=== PATIENT | female | born 1970 | race Caucasian/White ===

== ENCOUNTER 2019-03-08 18:30 | Emergency (ER) | payer BC, OTHER ==
[2019-03-08 18:45] VITALS: BP 165/97
--- NOTE | 2019-03-08 18:55 | UC ---
Throat Pain/Nasal Tam HPI - HPI Summary HPI Summary: This patient is a 48-year-old female who presents to the urgent care with chief complaint of sore throat, right ear pain for the last 2 days. She reports that her grandchildren positive for strep. Patient denies any fever or chills. Patient denies any difficulty swallowing or tongue swelling or lip swelling. The patient denies any trismus. - History of Current Complaint Chief Complaint: UCEar Stated Complaint: sore throat Time Seen by Provider: 03/08/19 18:40 Hx Obtained From: Patient Hx Last Menstrual Period: MENAPAUSAL ?: No Severity: Mild Pain Intensity: 5 - Allergies/Home Medications Allergies/Adverse Reactions: Allergies Allergy/AdvReac Type Severity Reaction Status Date / Time amoxicillin Allergy Severe HAND Verified 03/08/19 18:46 PEELING PMH/Surg Hx/FS Hx/Imm Hx Previously Healthy: Yes - Surgical History Surgical History: None - Social History Alcohol Use: Rare Substance Use Type: None Smoking Status (MU): Never Smoked Tobacco Review of Systems All Other Systems Reviewed And Are Negative: Yes Constitutional: Positive: Negative Skin: Positive: Negative Eyes: Positive: Negative ENT: Positive: Sore Throat, Ear Ache Respiratory: Positive: Negative Cardiovascular: Positive: Negative Gastrointestinal: Positive: Negative Genitourinary: Positive: Negative Motor: Positive: Negative Neurovascular: Positive: Negative Musculoskeletal: Positive: Negative Neurological: Positive: Negative Psychological: Positive: Negative Is Patient Immunocompromised?: No Physical Exam - Summary Physical Exam Summary: Vital signs: Reviewed Gen.: Patient is a well-developed and nourished female in no acute distress. Patient is lying comfortably on the stretcher. Head: Normocephalic and atraumatic Eyes: PERRLA, EOMI x2. Ears: Right Tympanic membrane with erythema and bulging and Left ear canal and TM WNL Nose and mouth: Neck: Supple, no lymphadenopathy, no JVD Lungs: CTA B/L CVS: S1 & S2 present. No murmurs appreciated. ABDOMEN: Soft, non-tender. No signs of distention. No rebound no guarding, and no masses palpated. Bowel sounds are normal. EXTREMITIES: FROM in all major joints, no edema, no cyanosis or clubbing. NEURO: Alert and oriented x 3. No acute neurological deficits. Speech is normal and follows commands. SKIN: Dry and warm Vital Signs: Initial Vital Signs Temp 97.4 F 03/08/19 18:37 Pulse 91 03/08/19 18:37 Resp 16 03/08/19 18:37 BP 165/97 03/08/19 18:37 Pulse Ox 95 03/08/19 18:37 Throat Pain/Nasal Course/Dx - Course Course Of Treatment: Rapid strep is positive. Therefore the patient was given Azithromycin. The patient will be discharged home with follow-up with primary care physician. The patient is hemodynamically stable alert and oriented 3. - Differential Dx/Diagnosis Provider Diagnosis: Strep pharyngitis Discharge - Sign-Out/Discharge Documenting (check all that apply): Patient Departure All imaging exams completed and their final reports reviewed: No Studies - Discharge Plan Condition: Stable Disposition: HOME Prescriptions: Azithromycin TAB* [Zithromax TAB (Z-ZANE) 250 mg #6 tabs] 250 mg PO DAILY #4 tab Patient Education Materials: Strep Throat (DC) Referrals: No Dawson NP [Primary Care Provider] - Additional Instructions: Take medications as instructed. Follow-up with the primary care physician the next 2 days. Return to the urgent care if symptoms worsen. - Billing Disposition and Condition Condition: STABLE Disposition: Home
[2019-03-08] MEDS ORDERED: Azithromycin TAB* 250 MG PO ONE (19:01)
[2019-03-08] MEDS ORDERED: Clindamycin CAP* 150 MG PO ONE (19:16)
== END 2019-03-08 19:22 | disposition home or self-care (01) ==
LOC: UCEAST 18:30
DX: J02.0 Streptococcal pharyngitis (principal); Z88.0 Allergy status to penicillin
CPT/HCPCS: 87651; 99202; A9270-GY; G0463